=== PATIENT | female | born 1995 | race Caucasian/White ===

== ENCOUNTER → 2016-10-21 | Outpatient (CLI) | payer OTHER ==
--- NOTE | 2016-10-21 18:37 | DI ---
XR WRIST COMPLETE MIN 3VW,10/21/2016 12:40 PM: Clinical History: Right wrist pain. Previous Exam: None at this facility. Findings: 3 views of the right wrist are obtained, and demonstrate anatomic alignment without fractures. The garcia rrounding soft tissues are unremarkable. Impression: No fractures.
== END ==
LOC: MOB LAB 12:45
PROVIDERS: ATTEND Physician Assistant Medical
DX: S69.91XA Unspecified injury of right wrist, hand and finger(s), initial encounter (principal); S63.501A Unspecified sprain of right wrist, initial encounter; X50.0XXA Overexertion from strenuous movement or load, initial encounter
CPT/HCPCS: 73110

== ENCOUNTER 2018-04-27 14:59 | Observation (INO) ==
[2018-04-27] MEDS ORDERED: Sodium Chloride 0.9% 1,000 ML IV ONE (15:27)
[2018-04-27] MEDS ORDERED: Sodium Chloride 0.9% 1,000 ML PRIMARY IV ONE (15:37)
[2018-04-27 15:43] LABS: BASOPHILS # (AUTO) 0.01 10*3/UL; BASOPHILS % (AUTO) 0.1 % (0-1); EOSINOPHILS # (AUTO) 0.08 10*3/UL; EOSINOPHILS % (AUTO) 0.8 % (0-8); Hematocrit [HCT] 30.3 % (37.0-47.0); Hemoglobin [HGB] 9.1 g/dL (12.0-16.0); LYMPHOCYTES # (AUTO) 0.81 10*3/uL; MEAN CORPUSCULAR HEMOGLOBIN 21.7 PG (27-31); MEAN CORPUSCULAR VOLUME 72.1 FL (81-99); MEAN PLATELET VOLUME 11.5 FL (7.4-12.2); MONOCYTES # (AUTO) 0.33 10*3/UL (0.3-0.8); MONOCYTES % (AUTO) 3.2 % (5-15); NEUTROPHILS # (AUTO) 9.21 10*3/UL
[2018-04-27 15:51] LABS: PLATELET MORPHOLOGY COMMENT SEE COMMENTS (NORM); WBC MORPHOLOGY COMMENT NORMAL MORPHOLOGY (NORM)
[2018-04-27 15:52] LABS: RBC MORPHOLOGY COMMENT SEE COMMENTS (NORM)
[2018-04-27] MEDS ORDERED: ONDANSETRON 4 MG/2 ML VIAL IVP ONE (15:53)
[2018-04-27 15:54] LABS: BLOOD UREA NITROGEN 8 mg/dL (7-22); LIPASE 44 IU/L (23-300); SERUM ALBUMIN 3.5 g/dL (3.5-4.8)
[2018-04-27] MEDS: Sodium Chloride 0.9% 1,000 ML PRIMARY IV SCH (16:32)
[2018-04-27] MEDS ORDERED: FAMOTIDINE 20 MG/2 ML VIAL IVP ONE (16:41)
--- NOTE | 2018-04-27 16:54 | OB.PROGRES ---
Intake - - Reason for Visit/Chief Complaint: Nausea and Vomiting Admitted From: Home - Estimated Due Date: 07/23/18 Gestational Age in Weeks and Days: 27 Weeks and 4 Days : 4 Para: 3 Term Births: 3 Living Children: 3 - Labs Blood Type and Rh: B+ Group B Strep: Unknown Maternal - Vital Signs Last Taken Vital Signs: Vital Signs - Last Taken Temperature 98.4 F 04/27/18 15:40 Pulse Rate 88 04/27/18 15:40 Respiratory Rate 18 04/27/18 15:40 Blood Pressure 102/58 04/27/18 15:40 Pulse Ox 98 04/27/18 15:40 - Vaginal Discharge Vaginal Bleeding Amount: None Vaginal Discharge Amount: None Monitoring - Uterine Activity Uterine Contraction Monitor Mode: External Uterine Contraction Pattern: Irritability Uterine Tone Measurement Phase: Soft Results - Labs CBC and BMP: 04/27/18 15:40 04/27/18 15:40 Assessment and Plan - Assessment / Plan Additional Assessment/Plan Details: The patient is a 22-year-old at 27-1/2 weeks gestation who started having some nausea and not feeling well last night and then overnight had na usea, emesis, diarrhea. The patient states that she had about 30 loose stools, 15 emesis and was nauseated. Positive chills. No documented fever. Her Aunt also was sick. It was not known if the patient ate something since she and her Aunt had the same food or if they have a virus. The patient presented to labor and delivery mid afternoon secondary to the continued nausea and vomiting and diarrhea. The patient has received IV fluids and is feeling a little bit better as well as Zofran for nausea. The patient currently would like some promethazine for nausea since her nausea does persist. Past medical history-no hypertension, no diabetes, no asthma Past surgical history noncontributory No known drug allergies No tobacco, no alcohol, no drugs. Objective: Please see the vital signs. Nontoxic-appearing but the patient is tired appearing. Lungs clear to auscultation Heart regular rate and rhythm Abdomen with positive bowel sounds, gravid, nontender, no guarding or rebound Cervix was deferred Extremities without edema External monitoring showed good accelerations. No late decelerations. No regular uterine irritability noted. Labs were essentially normal except for mild to moderate anemia with an H&H of 9.1 and 30.3. Creatinine was normal. BUN was normal. Amylase and lipase were normal. Liver function tests were normal. Assessment: IUP 27-1/2 weeks with acute gastroenteritis. Viral versus foodborne. Mild to moderate anemia with a hemoglobin of 9.1 and hematocrit of 30.3 White count was normal with a white count of 10,460 and 90% neutrophils Plan: IV fluids with normal saline 2 L then D5 LR at 150 mL/h Patient received IV Zofran and this helped a little bit. Promethazine 25 mg tablet one half tablet to one tablet by mouth every 6 hours Stool will be sent for C. difficile although patient has not had antibiotics over the past couple months. Most likely this is viral or foodborne and not C. difficile but secondary to the patient having 30 loose stools today, C. difficile will be completed. The patient will be under observation tonight and receive IV fluids. And external monitoring
[2018-04-27 17:05] LABS: URINE SAMPLE TYPE CLEAN CATCH URINE
[2018-04-27 17:07] LABS: AMPHETAMINE SCREEN NEGATIVE (NEG); CANNABINOID SCREEN,URINE NEGATIVE (NEG); COCAINE SCREEN NEGATIVE (NEG); METHADONE URINE SCREEN NEGATIVE (NEG); METHAMPHETAMINES SCREEN,URINE NEGATIVE (NEG); OPIATE SCREEN,URINE NEGATIVE (NEG); TRICYCLIC ANTIDEPRESSANT,URINE NEGATIVE (NEG)
[2018-04-27] MEDS: D5-LR 1,000 ML PRIMARY IV SCH (17:17)
[2018-04-27] MEDS ORDERED: ONDANSETRON 4 MG/2 ML VIAL IVP PRN (17:42)
[2018-04-27] MEDS ORDERED: LIDOCAINE W/ SODIUM BICARB 0.5 ML SYR SUBD PRN (17:42)
[2018-04-27] MEDS ORDERED: Ondansetron ODT Tab 4 MG TAB PO PRN (17:42)
[2018-04-27] MEDS ORDERED: CALCIUM CARBONATE 500 MG (TUMS) CHEWABLE TABLET PO PRN (17:42)
[2018-04-27] MEDS: Promethazine Tab 25 MG TAB PO PRN ×2 (17:46→23:05)
[2018-04-27] MEDS ORDERED: ACETAMINOPHEN 325 MG TABLET PO ONE (22:11)
[2018-04-28] MEDS: D5-LR 1,000 ML PRIMARY IV SCH ×4 (00:02→22:37)
[2018-04-28 05:14] LABS: BASOPHILS # (AUTO) 0 10*3/UL; BASOPHILS % (AUTO) 0 % (0-1); EOSINOPHILS # (AUTO) 0.03 10*3/UL; EOSINOPHILS % (AUTO) 0.6 % (0-8); Hematocrit [HCT] 23.3 % (37.0-47.0); LYMPHOCYTES # (AUTO) 0.93 10*3/uL; MEAN CORPUSCULAR HEMOGLOBIN 21.9 PG (27-31); MEAN PLATELET VOLUME 12.1 FL (7.4-12.2); MONOCYTES % (AUTO) 4.1 % (5-15); RED BLOOD COUNT 3.19 10^6/uL (4.20-5.40)
[2018-04-28 05:39] LABS: PLATELET MORPHOLOGY COMMENT NORMAL MORPHOLOGY (NORM); RBC MORPHOLOGY COMMENT SEE COMMENTS (NORM); WBC MORPHOLOGY COMMENT NORMAL MORPHOLOGY (NORM)
[2018-04-28 05:40] LABS: BLOOD UREA NITROGEN 4 mg/dL (7-22); SERUM ALBUMIN 2.3 g/dL (3.5-4.8)
[2018-04-28] MEDS: Sodium Chloride 0.9% 1,000 ML PRIMARY IV SCH ×8 (07:39→10:31)
[2018-04-28] MEDS: ACETAMINOPHEN 500 MG TABLET PO PRN ×3 (08:15→21:22)
--- NOTE | 2018-04-28 08:15 | OB.PROGRES ---
Interval History: The patient states that she last had emesis last evening. One loose stool overnight. She has slight nausea this morning. The patient has a history of headaches or frequent headaches actually. Also she does get headaches when she takes Zofran historically. The patient states that she has been fatigued over the past several weeks also. Currently, the patient has a headache and a little bit of nausea and the nurse is going to give her Tylenol and promethazine. The patient stated that hopefully she will be able to eat something after that. The patient is hungry. Objective - Cervical Exam Cervical Exam: Deferred Heart Rate Interpretation Category: Category I - Labs CBC and BMP: 04/28/18 05:00 04/28/18 05:00 - Vital Signs Last Taken Vital Signs: Vital Signs - Last Taken Temperature 98.2 F 04/28/18 05:00 Pulse Rate 88 04/28/18 05:00 Respiratory Rate 17 04/28/18 05:00 Blood Pressure 94/51 04/28/18 05:00 Pulse Ox 99 04/28/18 05:00 - Additional Details Additional Details: Lungs clear to auscultation Heart regular rate and rhythm Abdomen with positive bowel sounds and gravid. Soft, nontender, no guarding or rebound Assessment and Plan - Assessment / Plan Additional Assessment/Plan Details: Assessment: IUP 27-5/7 weeks with acute gastroenteritis. Patient is feeling slightly better. Anemia-patient's H&H this morning was 7 and 23.3. Review of chart shows hemoglobin was 9.1 on 04/20/2018. Patient states that she has not been having any bleeding-vaginally or from GI tract. Patient states that she had si gnificant anemia with her first . Not significant anemia with her second and third . The patient does feel fatigued and does get headaches. Plan: Continue IV fluids Tylenol and promethazine currently If the patient would like to try a regular bland diet, the patient may do so I would like to start oral iron twice a day but if the patient is still having GI issues, right now is not the best time. I will speak with the hospitalist about IV iron. Additionally, iron studies could be completed. These will be ordered. Possible discharge home later today
[2018-04-28] MEDS ORDERED: Prenatal Multivitamin Tab 1 TAB TAB PO SCH (09:00)
[2018-04-28] MEDS ORDERED: SODIUM CHLORIDE 0.9% IV ONE ×2 (12:49→14:50)
[2018-04-28] MEDS ORDERED: IRON SUCROSE IV ONE ×2 (12:49→14:50)
[2018-04-28] MEDS ORDERED: diphenhydrAMINE 25 MG CAPSULE PO ONE (19:06)
--- NOTE | 2018-04-28 19:11 | OB.PROGRES ---
Interval History: The patient states that her GI symptoms are improved. However, the patient has developed bone pain in her shoulders and feet and back after the IV iron transfusion. No shortness of breath. But the pain is significant. Objective - Cervical Exam Cervical Exam: Deferred Heart Rate Interpretation Category: Category I - Labs CBC and BMP: 04/28/18 05:00 04/28/18 05:00 - Vital Signs Last Taken Vital Signs: Vital Signs - Last Taken Temperature 98.4 F 04/28/18 08:20 Pulse Rate 85 04/28/18 17:25 Respiratory Rate 18 04/28/18 17:25 Blood Pressure 85/50 04/28/18 17:25 Pulse Ox 97 04/28/18 17:25 - Additional Details Additional Details: Lungs clear to auscultation Heart regular rate and rhythm Abdomen is soft and nontender without guarding or rebound The patient is uncomfortable with her bone pain Assessment and Plan - Assessment / Plan Additional Assessment/Plan Details: IUP 27-5/7 weeks acute gastroenteritis with improved symptoms Significant anemia with an H&H of 7 and 23.3. I had spoken with the hospitalist here and he recommended IV iron transfusion and the patient received 100 mg dose times two per protocol. Patient did not receive both doses one after the other but there was significant time in between. Now the patient has bone pain. No shortness of breath. Plan: I spoke with the hospitalist about the patient's symptoms. He suggested a Medrol Dosepak and Benadryl. I have ordered both. He also suggested that the patient not receive another dose of IV iron as we had planned for a couple weeks from now secondary to the side effects of the bone pain. The Medrol and Benadryl will be given to the patient. If the patient continues to have pain, I may give her some hydrocodone with Tylenol. The patient will not be discharged tonight secondary to the symptoms that the patient is having.
[2018-04-28] MEDS ORDERED: METHYLPREDNISOLONE 4 MG TAB DOSE PACK PO SCH ×2 (19:15→19:30)
[2018-04-28] MEDS ORDERED: FAMOTIDINE 20 MG TABLET PO SCH (19:45)
[2018-04-28] MEDS: HYDROcodone-APAP 5 MG -325 MG TABLET PO PRN (21:23)
[2018-04-29] MEDS: D5-LR 1,000 ML PRIMARY IV SCH (07:45)
[2018-04-29] MEDS: HYDROcodone-APAP 5 MG -325 MG TABLET PO PRN (07:47)
--- NOTE | 2018-04-29 09:03 | OB.PROGRES ---
Interval History: The patient states that her nausea is greatly improved and she is eating breakfast this morning. Additionally, her bone pain is improved. She does have some lower back pain but surmise as it may be secondary to being in bed or the iron. The patient is feeling much better. The patient desires to go home. No loose stools for greater than 24 hours. No fever or chills. Objective - Cervical Exam Heart Rate Interpretation Category: Category I - Labs CBC and BMP: 04/28/18 05:00 04/28/18 05:00 - Vital Signs Last Taken Vital Signs: Vital Signs - Last Taken Temperature 97.6 F 04/29/18 05:25 Pulse Rate 88 04/29/18 05:25 Respiratory Rate 17 04/29/18 05:25 Blood Pressure 110/58 04/29/18 05:25 Pulse Ox 99 04/29/18 05:25 - Additional Details Additional Details: Lungs clear to auscultation Heart regular rate and rhythm Abdomen with positive bowel sounds, soft and nontender without guarding or rebound Assessment and Plan - Assessment / Plan Additional Assessment/Plan Details: Assessment: IUP 27-6/7 weeks status post acute gastroenteritis doing better. Moderate to severe anemia with H&H of 7 and 23.3 status post iron infusion and then bone pain which can be a significant side effect versus an allergic reaction. The patient is much improved now that she received the first dose of a Medrol Dosepak and Benadryl as well as 2 different doses of a single tablet of hydrocodone/Tylenol 5/325 Plan: The patient will be discharged after a nonstress test The patient has an appointment with her NUMERICAL CONTROL OPERATOR this afternoon at 1530 hrs. and the patient should keep this. I will speak to Dr. Santiago to inform him of the patient's hospital observation for 40 hours. The patient should continue taking the Medrol Dosepak with the dose today in the afternoon and then continue it at lunch every day. Zantac 150 mg 1 by mouth twice a day to help prevent GI irritation secondary to the Medrol Dosepak The patient should have a growth ultrasound secondary to the significant anemia that the patient has had. I will request that Dr. Santiago order this as an outpatient. If the patient receives another iron infusion, the patient should have a test do se to make sure that she is not allergic to the iron infusion. Most likely, this was a hypersensitivity reaction. The patient should start ferrous sulfate 325 mg 1 by mouth twice a day on 01 May to allow her GI system to recuperate after the acute gastroenteritis recalling that the patient just had an iron transfusion yesterday. Ferrous sulfate and Zantac was prescribed Colace 100 mg capsule 1 capsule by mouth daily to twice a day when necessary constipation The patient should delay her 1 hour Glucola that she was going to complete today for about 2 weeks since she is currently on a Medrol Dosepak and this will elevate her glucoses. The patient should have a hemoglobin and hematocrit checked in 2-4 weeks to determine how her H&H is. I will request that Dr. Santiago order this as an outpatient.
--- NOTE | 2018-04-29 09:17 | DCSUMMARY ---
Hospitalization Summary Admit Date: 04/27/18 Discharge Date: 04/29/18 Primary Diagnosis:: acute gastroenteritis Secondary Diagnosis:: Moderate to severe anemia Hospital Course: Assessment: IUP 27-6/7 weeks status post acute gastroenteritis doing better. Moderate to severe anemia with H&H of 7 and 23.3 status post iron infusion and then bone pain which can be a significant side effect versus an allergic reaction. The patient is much improved now that she received the first dose of a Medrol Dosepak and Benadryl as well as 2 different doses of a single tablet of hydrocodone/Tylenol 5/325 Plan: The patient will be discharged after a nonstress test The patient has an appointment with her FIXED INCOME ANALYST this afternoon at 1530 hrs. and the patient should keep this. I will speak to Dr. Santiago to inform him of the patient's [facility] for 40 hours. The patient should continue taking the Medrol Dosepak with the dose today in the afternoon and then continue it at lunch every day. Zantac 150 mg 1 by mouth twice a day to help prevent GI irritation secondary to the Medrol Dosepak The patient should have a growth ultrasound secondary to the significant anemia that the patient has had. I will request that Dr. Santiago order this as an outpatient. If the patient receives another iron infusion, the patient should have a test dose to make sure that she is not allergic to the iron infusion. Most likely, this was a hypersensitivity reaction. The patient should start ferrous sulfate 325 mg 1 by mouth twice a day on 01 May to allow her GI system to recuperate after the acute gastroenteritis recalling that the patient just had an iron transfusion yesterday. Ferrous sulfate was prescribed. The Zantac 150 mg 1 tablet by mouth twice a day will be called in by the nurse because the electronic medical record would not allow me to prescribe this for some reason. I will request that the nurse call this one in to her pharmacy. #60 and 4 refills Colace 100 mg capsule 1 capsule by mouth daily to twice a day when necessary constipation The patient should delay her 1 hour Glucola that she was going to complete today for about 2 weeks since she is currently on a Medrol Dosepak and this will elevate her glucoses. The patient should have a hemoglobin and hematocrit checked in 2-4 weeks to determine how her H&H is. I will request that Dr. Santiago order this as an outpatient. / Postop Complications: Delivery was not completed yet Johnson Complications: Delivery was not completed yet Exam - Vitals Vital Signs: Vital Signs Temperature 97.6 F Temperature Source Oral Pulse Rate [Pulse Oximeter] 100 Pulse Rate 88 Respiratory Rate 17 Blood Pressure [Right Arm] 110/58 Pulse Ox 99 Oxygen Delivery Method Room Air Height 5 ft 2 in Weight 155 lb
[2018-05-01 18:05] VITALS: BP 109/59; RESP 18; TEMP 98.1; O2SAT 97
== END 2018-04-29 09:56 | disposition home or self-care (01) ==
LOC: OBIP 14:59 → OBOP 14:59
PROVIDERS: ADMIT Obstetrics & Gynecology; ATTEND Obstetrics & Gynecology

== ENCOUNTER 2018-06-16 19:10 | Observation (INO) ==
[2018-06-16] MEDS ORDERED: Lactated Ringers 1,000 ML PRIMARY IV ONE (19:51)
[2018-06-16 20:19] LABS: Hematocrit [HCT] 29.9 % (37.0-47.0); Hemoglobin [HGB] 9.2 g/dL (12.0-16.0); MEAN CORPUSCULAR HEMOGLOBIN 23.3 PG (27-31); MEAN CORPUSCULAR HGB CONC 30.8 g/dL (33-37); MEAN CORPUSCULAR VOLUME 75.7 FL (81-99); MEAN PLATELET VOLUME 12.3 FL (7.4-12.2); RED BLOOD COUNT 3.95 10^6/uL (4.20-5.40)
[2018-06-16 20:29] LABS: BLOOD UREA NITROGEN 10 mg/dL (7-22); BUN/CREATININE RATIO 16.66 (6-20); SERUM ALBUMIN 3.2 g/dL (3.5-4.8)
[2018-06-16] MEDS: Lactated Ringers-OB Dept 1,000 ML PRIMARY IV SCH (20:56)
[2018-06-16 21:04] LABS: BILIRUBIN,URINE NEGATIVE (NEG); CLARITY,URINE Slightly Cloudy (CLEAR); COLOR,URINE YELLOW (Y); GLUCOSE, URINE (UA) NEGATIVE (NEG); OCCULT BLOOD,URINE NEGATIVE (NEG); PH,URINE 6.5 (5.0-8.5); PROTEIN,URINE NEGATIVE (NEG)
[2018-06-16 21:08] LABS: BACTERIA,URINE FEW; SQUAMOUS EPITHELIAL CELL,UR RARE; URINE CRYSTALS MANY; URINE SAMPLE TYPE VOIDED SPECIMEN
[2018-06-16] MEDS ORDERED: ONDANSETRON 4 MG/2 ML VIAL IVP PRN (21:48)
[2018-06-16] MEDS ORDERED: LIDOCAINE W/ SODIUM BICARB 0.5 ML SYR SUBD PRN (21:48)
[2018-06-16] MEDS ORDERED: Promethazine Tab 25 MG TAB PO PRN (21:50)
[2018-06-16] MEDS: metroNIDAZOLE Tab 500 MG TAB PO SCH (22:20)
[2018-06-16] MEDS ORDERED: MORPHINE SULFATE 2 MG/1 ML ONE (22:21)
[2018-06-16] MEDS: MORPHINE SULFATE 2 MG/1 ML IVP PRN (22:26)
[2018-06-17] MEDS: MORPHINE SULFATE 2 MG/1 ML IVP PRN (03:03)
[2018-06-17] MEDS: Lactated Ringers-OB Dept 1,000 ML PRIMARY IV SCH ×2 (03:04→09:39)
--- NOTE | 2018-06-17 08:36 | OB.PROGRES ---
Intake - - Reason for Visit/Chief Complaint: Contractions, Cramping Additional Reason(s) for Visit: Right leg is "burning", pt is crying Admitted From: Emergency Dept - Estimated Due Date: 07/23/18 Gestational Age in Weeks and Days: 34 Weeks and 6 Days : 4 Para: 3 Term Births: 3 Number of Abortions (Spont./Elective): 1 Living Children: 3 - Labs Blood Type and Rh: B+ Group B Strep: Unknown Maternal - Vital Signs Last Taken Vital Signs: Vital Signs - Last Taken Temperature 98 F 06/17/18 04:40 Pulse Rate 73 06/17/18 04:40 Respiratory Rate 16 06/17/18 04:40 Blood Pressure 95/57 06/17/18 04:40 Pulse Ox 98 06/17/18 04:40 - Vaginal Discharge Vaginal Bleeding Amount: None Vaginal Discharge Amount: None Monitoring - Uterine Activity Uterine Contraction Monitor Mode: External Contraction Frequency(minutes): 2-5 Contraction Duration (seconds): 60-80 Uterine Contraction Pattern: Irritability Uterine Tone Measurement Phase: Soft Uterine Contraction Intensity: Mild Results - Labs CBC and BMP: 06/16/18 19:40 06/16/18 19:40 Assessment and Plan - Assessment / Plan Additional Assessment/Plan Details: The patient is a 22-year-old at 34 6/7 weeks gestation who started having some tingling in her right leg over the past week or 2 but no significant pain. 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 The pain seemed to radiate from her right hip down her leg. The pain progressed and she went to labor and delivery secondary to some pain in her right leg and also in her lower abdomen. The patient was found to be having some uterine irritability but her cervix was closed. The patient had also had a vaginal discharge and vaginosis panel was positive for bacterial vaginosis. The patient was initially given IV fluids and her uterine irritability decreased. The patient's cervix was checked and her cervix was closed. The patient's pain in her right hip and leg continued. It was initially thought that perhaps the baby was pinching and nerve acutely. This morning, the patient relates that she has had the pain over the past couple weeks and it more acutely increased yesterday with the burning and feeling warm and tingling sensation. The patient did receive a couple doses of IV morphine and oral promethazine last evening and then once this morning around 3 AM. This did make the pain still a bit better. The patient would like to see physical therapy. No history of HSV. Past medical history-no hypertension, no diabetes, no asthma Past surgical history noncontributory No known drug allergies No tobacco, no alcohol, no drugs. 3 vaginal deliveries Objective: Please see the vital signs Lungs clear to auscultation Heart regular rate and rhythm Abdomen is gravid and soft and nontender Cervix exam deferred this morning. External monitor shows category 1 heart rate tracing No regular contractions. Positive straight leg raise on the right. Negative on the left. Reflexes were 1/4 bilaterally even with distraction test. Strength was 4+/5 on right leg and 5 out of 5 on left leg. Most likely, the slight decreased strength was secondary to the discomfort that the patient was having. Trace edema bilaterally lower extremity. Limited transabdominal ultrasound shows the baby to be in the transverse presentation with the head on the patient's right side. Subjectively, there is good amniotic fluid. Assessment: IUP 34-6/7 weeks with patient presenting last night with subacute and then acute right lower leg discomfort and pain and uterine irritability. The uterine irritability easily resolved with IV fluids. The patient does not drink much water. Patient also had bacterial vaginosis by vaginosis panel. The patient also has what appears to be sciatica and other right sided nerve discomfort and pain. The patient has minimally decreased strength compared to the left side that this is most likely secondary to the discomfort that the patient is having. The patient does not specifically have a Homans sign on the right leg but does have discomfort throughout her right leg. The patient also has moderate anemia with this history. Patient states that she is been taking her ferrous sulfate twice a day. Hematocrit was 29.9 and hemoglobin was 9.2. This is increased from April. Patient has a history of significant bone pain with iron infusion. Plan: I would like to get an ultrasound to rule out a DVT on the right leg. If this is negative, I will get physical therapy to see the patient. I will inform the patient's primary BUMPER OPERATOR about this patient so he can continue care. The patient was admitted for observation. I will discontinue the patient's IV morphine and placed the patient on some hydrocodone with Tylenol. Regular diet.
[2018-06-17] MEDS ORDERED: HYDROcodone-APAP 5 MG -325 MG TABLET PO PRN (08:40)
[2018-06-17 09:39] VITALS: BP 95/54; RESP 18; TEMP 97.7; O2SAT 97
[2018-06-17] MEDS: metroNIDAZOLE Tab 500 MG TAB PO SCH (10:19)
--- NOTE | 2018-06-17 10:20 | DI ---
VENOUS DOPPLER ULTRASOUND OF THE RIGHT LOWER EXTREMITY, 06/17/2018 8:38 AM: Clinical History: IUP 34 6/7 wk. Right leg pain. Previous Exam: None. Technique: 2D real-time imaging and color Doppler ultrasound with compression and augmentation maneuv ers. Deep Venous System: Normal deep venous system from groin to popliteal fossa. Superficial Venous System: Normal greater saphenous vein. Reading: Negative venous Doppler ultrasound of the right lower extremity.
--- NOTE | 2018-06-17 11:47 | OB.PROGRES ---
Date of Service: 06/17/18 Interval History: The patient is resting comfortably. DVT workup is negative. PT has seen her. No evidence of PTL or DVT. Discharge to home in good condition. Objective - Labs CBC and BMP: 06/16/18 19:40 06/16/18 19:40 - Vital Signs Last Taken Vital Signs: Vital Signs - Last Taken Temperature 97.7 F 06/17/18 08:09 Pulse Rate 71 06/17/18 08:34 Respiratory Rate 18 06/17/18 08:09 Blood Pressure 95/54 06/17/18 08:09 Pulse Ox 97 06/17/18 08:09 Assessment and Plan - Assessment / Plan Additional Assessment/Plan Details: Discharge to home. F/u as scheduled. - Time/Visit Time Spent With Patient: Less Than 15 Minutes
--- NOTE | 2018-06-17 15:56 | PTI REPORT ---
Thank you for the referral of Peter Jacobo. She was seen on 06/17/18 for an inpatient evaluation secondary to right hip and lower extremity pain. SUBJECTIVE: The patient is a 22-year-old female. The patient's physician spoke with the therapist prior to the evaluation, stating that the patient came in last night due to extreme hip and right leg pain. The patient states that her pain began insidiously and it was a sharp, burning pain that she has never experienced before; therefore, she came to the emergency room and was admitted because she is almost 35 weeks . She states this is her fourth and she is due next month. The patient states that her biggest complaint at this time is pain that is so bad she is having difficulty walking and getting in any position that helps with pain relief. Earlier an ultrasound was performed to rule out a blood clot. Testing came back negative. PAST MEDICAL HISTORY: Past medical history can be found in the patient's medical record. OBJECTIVE FINDINGS: Pain: The patient reports a pain level of 9/10 on the verbal analog scale (0=no pain, 10=worst pain) with any bed mobility or movement in the right SI joint area down the right lower extremity. Bed mobility/Ambulation: The patient was able to perform bed mobility and ambulation independently; however, with increased time and with an antalgic gait and with pain. Strength/Range of motion: Strength and range of motion were not formally tested due to the patient's pain level. The therapist attempted to palpate for proper AIIS and ASIS placement in the supine position in her bed; however, due to the patient's this was difficult. Measuring from the medial malleoli, the patient appears to have no difficulty with leg length discrepancy at this time. The patient was unable to tolerate either left or right coxofemoral joint mobilization. We attempted manual energy techniques for self correction of SI joint; however, the patient was unable to create enough force for any self mobilization techniques to be beneficial. ASSESSMENT: Problem List: Increased pain Physical Therapy Goals: To be met by discharge from inpatient: Patient will be educated on self positional techniques at home for pain relieving techniques. Patient will receive neuromuscular reeducation in the form of Kinesio taping to help alleviate pain. TREATMENT PLAN: Patient will be seen on a PRN basis while an inpatient for pain relieving techniques. INITIAL TREATMENT: Treatment today consisted of the initial evaluation followed by the patient receiving manual therapy in the form of bilateral lower extremity coxofemoral joint mobilization. We attempted SI joint manual energy techniques and self mobilization techniques as well as manual traction. The patient was not able to tolerate manual traction, indicating that aquatic therapy at this time would not be idea. She received neuromuscular reeducation in the form of Kinesio taping for space correction to the right SI joint as well as piriformis inhibition. JOSE L
== END 2018-06-17 13:33 | disposition home or self-care (01) ==
LOC: OBIP 19:10 → OBOP 19:10
PROVIDERS: ADMIT Obstetrics & Gynecology; ATTEND Obstetrics & Gynecology

== ENCOUNTER 2018-07-13 21:43 | Inpatient (IN) ==
[2018-07-13] MEDS ORDERED: Sodium Chloride 0.9% 1,000 ML PRIMARY IV ONE (23:06)
[2018-07-13] MEDS ORDERED: MORPHINE SULFATE 10 MG/1 ML IM ONE (23:09)
[2018-07-14] MEDS ORDERED: Sodium Chloride 0.9% 1,000 ML PRIMARY IV ONE (00:49)
[2018-07-14] MEDS: Sodium Chloride 0.9% 1,000 ML PRIMARY IV SCH ×2 (02:38→11:32)
[2018-07-14] MEDS ORDERED: ACETAMINOPHEN 325 MG TABLET PO ONE ×3 (04:28→17:51)
[2018-07-14] MEDS ORDERED: ONDANSETRON 4 MG/2 ML VIAL IVP ONE (04:28)
[2018-07-14 07:41] LABS: Hematocrit [HCT] 26.1 % (37.0-47.0); MEAN CORPUSCULAR HEMOGLOBIN 23.7 PG (27-31); MEAN CORPUSCULAR HGB CONC 30.7 g/dL (33-37); MEAN CORPUSCULAR VOLUME 77.2 FL (81-99); MEAN PLATELET VOLUME 12.1 FL (7.4-12.2); RED BLOOD COUNT 3.38 10^6/uL (4.20-5.40)
[2018-07-14 07:50] LABS: BLOOD UREA NITROGEN 9 mg/dL (7-22); SERUM ALBUMIN 2.6 g/dL (3.5-4.8); Uric Acid 3.8 mg/dl (2.5-6.2)
[2018-07-14] MEDS ORDERED: diphenhydrAMINE 25 MG CAPSULE PO ONE (08:57)
[2018-07-14] MEDS ORDERED: Sodium Chloride 0.9% 500 ML PRIMARY IV ONE (08:57)
--- NOTE | 2018-07-14 09:03 | OB.PROGRES ---
Intake - - Reason for Visit/Chief Complaint: Contractions, Other Additional Reason(s) for Visit: severe leg and hip pain Admitted From: Home - LMP: unk Estimated Due Date: 07/23/18 Gestational Age in Weeks and Days: 38 Weeks and 5 Days : 5 Para: 3 Term Births: 3 Number of Abortions (Spont./Elective): 1 Living Children: 3 - Labs Blood Type and Rh: B+ Group B Strep: Negative Hepatitis B Surface Antigen: Absent HIV: Negative Rubella Status: Immune VDRL/RPR: Absent Maternal - Vital Signs Last Taken Vital Signs: Vital Signs - Last Taken Temperature 97.8 F 07/14/18 04:52 Pulse Rate 97 07/14/18 04:52 Respiratory Rate 18 07/14/18 04:52 Blood Pressure 108/53 07/14/18 04:52 Pulse Ox 98 07/14/18 04:52 - Cervical Exam Cervical Dilation (cm): 2 Cervical Effacement Percentage: 50 Station: -3 Exam Performed By: MEG day - Vaginal Discharge Vaginal Bleeding Amount: Spotting Vaginal Bleeding Description: Brownish-Red Vaginal Bleeding Onset: 07/13/18 am Vaginal Discharge Amount: None Vaginal Discharge Description: Watery Vaginal Discharge Odor: Odorless Vaginal Itching: No Monitoring - Uterine Activity Uterine Contraction Monitor Mode: External Contraction Frequency(minutes): x2 Contraction Duration (seconds): 50-70 Uterine Contraction Pattern: Irritability Uterine Tone Measurement Phase: Soft Uterine Contraction Intensity: Mild Results - Labs CBC and BMP: 07/14/18 07:38 07/14/18 07:38 - Bedside Testing Bedside Urine Ketone: Small Bedside Urine Leukocytes Esterase: Negative Bedside Urine Nitrite: Negative Bedside Urine Occult Blood: Negative Bedside Urine Protein: Negative Bedside Specific [place]: 1.015 Assessment and Plan - Assessment / Plan Additional Assessment/Plan Details: The patient is not in labor at this time. We are planning induction at 39 weeks. She is significantly anemic, as she has been throughout her despite an iron infusion and PO iron throughout. Will administer 2 U PRBC in anticipation of normal blood loss at delivery. This was discussed with the patient and she agrees. She will be discharged after the transfusion to return at [facility] on 07/17/18 for induction. - Time/Visit Time Spent With Patient: 15-25 Minutes
[2018-07-14] MEDS ORDERED: methylPREDNISolone 125 MG/2 ML VIAL IVP ONE (17:51)
[2018-07-14] MEDS ORDERED: FUROSEMIDE 10 MG/1 ML - 2 ML VIAL IVP ONE (17:51)
[2018-07-14] MEDS ORDERED: diphenhydrAMINE 50 MG/1 ML VIAL IVP ONE (17:51)
--- NOTE | 2018-07-14 17:59 | PDOC ---
HPI - History of Present Illness Date of Service: 07/14/18 Time of Service: 17:53 Chief Complaint: wheezing and hypotension with blood transfusion History of Present Illness: This is a very pleasant 22 YO female win the later stages of her who has had issues with iron deficiency anemia. She states that she did not feel very good with a blood transfusion today, felt heavy arm sensation, chest discomfort, some shortness of breath, and wheezing. She had a headache that started last night over the top of her head and has persisted today without much improvement. She had nausea. The patient denies asthma. She does not smoke. She states that she had a reaction to IV iron infusion as well in which her entire body and all her joints hurt. She denies any fever, but felt she had some congestion. She did not have influenza vaccine. The patient states she has been on PO iron and tolerates that, and her most recent iron level was low despite minimal change in hemoglobin. The patient denies any history of sickle cell disease or trait in her history. She has not had any history of thallasemias. The patient denies any medial issues outside of her . She is feeling her baby move and there is a NST strip running right now that shows a good heart beat for baby. I have asked the lab for a transfusion reaction workup. She has not been hypoxic despite wheezing and cough. She has never had problems with hypertension in or preeclampsia. Past Medical History Medical History: 1. anemia in . 2. IV iron transfusion reaction. Surgical History: no prior surgeries Pertinent Family History: history of diabetes in the family. Past Social History: does not smoke or drink alcohol. has three other children. In the Past 12 Months, Have Used or Abuse Any of the Following Substance: None Alcohol Use: None Medication / Allergies Home Medications: Home Medications Medication Instructions Recorded Confirmed Type 1 tab PO QDAY 12/09/17 07/13/18 History vitamin,calcium,qbsozqse-[id number]-nnjoj acid tablet Ferrous Sulfate [Feosol] 325 mg PO BID #60 tab 04/29/18 07/13/18 Rx docusate sodium 100 mg capsule 100 mg PO BID 05/26/18 07/13/18 History ranitidine 150 mg tablet 150 mg PO BID tab 05/26/18 07/13/18 History metroNIDAZOLE Tab [Flagyl Tab] 500 mg PO BID #14 tab 06/17/18 07/07/18 Rx dicloxacillin 250 mg capsule 250 mg PO QID #28 cap 06/19/18 07/07/18 Rx nitrofurantoin 100 mg PO BID #14 cap 06/19/18 07/07/18 Rx monohydrate/macrocrystals 100 mg capsule Allergies/Adverse Reactions: Allergies Allergy/AdvReac Type Severity Reaction Status Date / Time No Known Allergies Allergy Verified 07/13/18 22:02 Review of Systems - Constitutional Constitutional: REPORTS: General Health Good - Ear/Nose Exam Ear/Nose Exam: REPORTS: Congestion - Respiratory Respiratory: REPORTS: Cough, Wheezing - Cardiovascular Cardiovascular: REPORTS: Other (chest discomfort attributed to wheezing and heartburn.) - Gastrointestinal Gastrointestinal / Abdominal: REPORTS: Nausea, Vomiting - Genitourinary Genitourinary: REPORTS: Negative System Review - Neurological Neurologic: REPORTS: Headache Exam - Vitals Vital Signs: Vital Signs Temperature 98.1 F Temperature Source Oral Pulse Rate [Pulse Oximeter] 80 Pulse Rate 77 Respiratory Rate 16 Blood Pressure [Right Arm] 108/53 Blood Pressure 101/60 Pulse Ox 95 Oxygen Delivery Method Room Air Height 5 ft 3 in Weight 163 lb Selected Entries 07/14/18 14:30 07/14/18 14:45 07/14/18 15:00 Blood Pressure 88/54 90/58 86/53 07/14/18 15:15 Blood Pressure 88/54 - General General Appearance: No Acute Distress, Cooperative - Head Head Exam: Normal Inspection, Normocephalic, Atraumatic - Eye Eye Exam: POSITIVE: No Scleral Icterus - ENT ENT Exam: POSITIVE: Mucous Membranes Moist - Neck Neck Exam: JVP is not Raised - Respiratory Respiratory Exam: POSITIVE: Breathing Non Labored, Wheezes, Coarse Breath Sounds - Cardiovascular Cardiovascular Exam: POSITIVE: RRR, No Murmur, No Clicks, No Gallops, No Rubs, No JVD - GI/Abdominal GI/Abdominal Exam: POSITIVE: Normal Bowel Sounds, Non Tender, Non Distended, Soft Additional GI/Abdominal Exam Details: gravid abdomen - Rectal Rectal Exam: POSITIVE: Deferred - External Exam: POSITIVE: Deferred Exam: POSITIVE: Deferred - Extremities Extremities Exam: POSITIVE: No Clubbing Present, No Edema Present, No Cyanosis Present - Neurological Neurological Exam: POSITIVE: Alert, Oriented x 3, No Facial Droop, Speech Intact / Clear, Moves All Extremities Equally - Psychiatric Psychiatric Exam: POSITIVE: Normal Affect, Normal Mood - Integumentary Integumentary Exam: POSITIVE: Normal Color Additional Integumentary Exam Details: no rash Results - Labs CBC and BMP: 07/14/18 07:38 07/14/18 07:38 Additional Lab Results: Laboratory Results 07/14/18 07/14/18 07/14/18 07:35 07:38 07:38 WBC 8.04 RBC 3.38 L Hgb 8.0 L Hct 26.1 L MCV 77.2 L MCH 23.7 L MCHC 30.7 L RDW Std Deviation 51.4 H RDW Coeff of [place] 19.0 H Plt Count 126 L MPV 12.1 Sodium 138 Potassium 4.1 Chloride 112 Carbon Dioxide 19 L Anion Gap 7 BUN 9 Creatinine 0.5 Estimated GFR > 60 BUN/Creatinine Ratio 18.00 Glucose 71 L Calculated Osmolality 282.0 Uric Acid 3.8 Calcium 7.5 L Total Bilirubin 0.3 AST 11 ALT 9 Alkaline Phosphatase 100 Lactate Dehydrogenase 247 L Total Protein 5.2 L Albumin 2.6 L Globulin 2.6 Albumin/Globulin Ratio 1.00 L Blood Type B POSITIVE Antibody Screen Negative Crossmatch See Detail - Imaging Status: Image Pending (I have ordered a chest X-ray to look for fluid overload) Assessment and Plan - Patient Problems (1) TACO (transfusion associated circulatory overload) Current Visit: Yes Status: Acute Code(s): E87.71 - Transfusion associated circulatory overload (2) Blood transfusion reaction Current Visit: Yes Status: Acute Code(s): T80.92XA - Unspecified transfusion reaction, initial encounter Qualifiers: Encounter type: initial encounter Qualified Code(s): T80.92XA - Unspecified transfusion reaction, initial encounter (3) Headache Current Visit: Yes Status: Acute Code(s): R51 - Headache Qualifiers: Headache type: tension-type Headache chronicity pattern: acute headache Intractability: intractable Qualified Code(s): G44.201 - Tension-type he adache, unspecified, intractable (4) Normal intrauterine in third trimester Current Visit: Yes Status: Acute Code(s): Z34.93 - Encounter for supervision of normal , unspecified, third trimester (5) Anemia, iron deficiency Current Visit: Yes Status: Acute Code(s): D50.9 - Iron deficiency anemia, unspecified Qualifiers: Iron deficiency anemia type: other iron deficiency Qualified Code(s): D50.8 - Other iron deficiency anemias - Assessment / Plan Additional Assessment/Plan Details: overall, I think the presentation is most consisted with transfusion associated circulatory overload, or TACO. Not all the signs and symptoms are completely convincing, but given wheezing and suspected fluid overload, I think it prudent to presume TACO until proven otherwise lasix tylenol/benadryl/solumedrol check CXR for overload in case this is a viral syndrome in setting of blood transfusion, check for influenza hold off on any further units of PRBC no IV iron given reaction on prior infusion work up first unit of blood for transfusion reaction, though TACO does not necessarily correlate with positive workups. check magnesium and replace if low with wheezing PRN albuterol I think the patient should remain overnight to reassess interventions. Thank you for this consult, will be glad to assist in care during the hospital stay.
--- NOTE | 2018-07-14 18:01 | DI ---
LIMITED OBSTETRICAL ULTRASOUND, 07/14/2018 9:04 AM Clinical History: Third trimester . Assess well-being. Previous Exam: 02/24/2018. Adjusted EDC by early OB US: 07/23/2018. Comment: The ordering initially was for only CODY. However, upon scanning this fetus, a membrane was i dentified and therefore biometry was performed. Cervical Length: Estimated at 35 mm. Lie: Single live IUP in vertex presentation. Amnionic Fluid Content: Amnionic fluid content is increased for this stage of . Amnionic Fluid Index: 11.0 cm. Activity: cardiac and extremity. Placental Location and Grade: Anterior corpus. Grade 3. Heart Rate: 130 beats/minute and regular. Additional Findings: Multiple scans through the right lower quadrant of the mother show a hyperechoic sheetlike structure located between the placenta and the fetus. There is an amnionic fluid on both s ides of this structure. Biometry: BPD: 91 mm, 37 weeks 0 days. HC: 336 mm, 38 weeks 4 days. AC: 331 mm, 37 weeks 1 day. FL: 72 mm, 37 weeks 0 days. Composite EGA: 37 weeks 3 days. US EDC: 08/01/2018. EDC By Early OB US: 07/23/2018. LMP Percentile: 28%. Weight: 3124 g, plus or minus 456 g. Ovaries and Adnexae: Not visualized Readin. Single live fetus with vertex presentation. Amniotic fluid content appears slightly increased for this stage of . CODY is 11.0 cm. Placenta is anterior corpus and grade 3. 2. There is a hyperechoic "sheetlike" structure lying between the anterior placenta and the fetus on the right side of the uterus. This is quite extensive and does not appear to represent a classic amn iotic band. 3. The composite EGA is 37 weeks 3 days with an ultrasound EDC of 08/01/2018. Based on the early OB u ltrasound, the EDC would be 07/23/2018. LMP percentile is 28%. Estimated weight is 3124 g, plus or minus 456 g.
[2018-07-14] MEDS: ALBUTEROL SULFATE 2.5 MG/3 ML NEB PRN (18:45)
--- NOTE | 2018-07-14 19:13 | DI ---
AP CHEST X-RAY, 07/14/2018 5:50 PM : Clinical History: Wheezing posttransfusion. Previous Exam: 05/27/2018. Soft Tissues: No acute soft tissue abnormality. The patient is and was provided additional s hielding. Bones: Normal. Heart: Normal heart. Lungs: No infiltrates. There is no evidence of interstitial pulmonary edema to suggest fluid overload . Effusion(s): None. Mediastinum: Normal mediastinum. Nodules: No pulmonary nodules. Reading: Normal chest x-ray.
[2018-07-14] MEDS ORDERED: Magnesium Sulfate 2gm (Premix) 2 GM/50 ML BAG IV ONE (19:49)
[2018-07-15 05:06] LABS: BASOPHILS # (AUTO) 0 10*3/UL; BASOPHILS % (AUTO) 0 % (0-1); EOSINOPHILS # (AUTO) 0.01 10*3/UL; EOSINOPHILS % (AUTO) 0.2 % (0-8); Hematocrit [HCT] 30.3 % (37.0-47.0); Hemoglobin [HGB] 9.6 g/dL (12.0-16.0); LYMPHOCYTES # (AUTO) 0.45 10*3/uL; MEAN CORPUSCULAR HEMOGLOBIN 24.5 PG (27-31); MEAN CORPUSCULAR HGB CONC 31.7 g/dL (33-37); MEAN CORPUSCULAR VOLUME 77.3 FL (81-99); MEAN PLATELET VOLUME 13.2 FL (7.4-12.2); MONOCYTES # (AUTO) 0.11 10*3/UL (0.3-0.8); MONOCYTES % (AUTO) 1.8 % (5-15); NEUTROPHILS # (AUTO) 5.46 10*3/UL; NEUTROPHILS % (AUTO) 90.1 % (50-80); RED BLOOD COUNT 3.92 10^6/uL (4.20-5.40)
[2018-07-15 05:12] LABS: BLOOD UREA NITROGEN 9 mg/dL (7-22); SERUM ALBUMIN 2.9 g/dL (3.5-4.8)
[2018-07-15 05:29] LABS: PLATELET MORPHOLOGY COMMENT NORMAL MORPHOLOGY (NORM); RBC MORPHOLOGY COMMENT NORMAL MORPHOLOGY (NORM); WBC MORPHOLOGY COMMENT NORMAL MORPHOLOGY (NORM)
[2018-07-15] MEDS: diphenhydrAMINE 50 MG/1 ML VIAL IVP PRN ×2 (10:40→16:31)
[2018-07-15] MEDS: ALBUTEROL SULFATE 2.5 MG/3 ML NEB PRN ×3 (10:48→19:33)
--- NOTE | 2018-07-15 11:05 | OB.PROGRES ---
Interval History: Consultation from Dr. Peña noted and appreciated. Will hold off on the second unit of PRBC. Hbg this AM was 9. The patient will be 39 weeks tomorrow. As such, and given the weather situation, we will keep her here and begin her induction after midnight tonight with anticipated vaginal delivery tomorrow. FHRT remains reassuring and her CODY was normal at 11. Will await any additional recommendations from Dr. Peña. Objective - Labs CBC and BMP: 07/15/18 04:03 07/15/18 04:03 - Vital Signs Last Taken Vital Signs: Vital Signs - Last Taken Temperature 98.4 F 07/15/18 04:30 Pulse Rate 96 07/15/18 10:49 Respiratory Rate 22 07/15/18 10:49 Blood Pressure 98/52 07/14/18 19:00 Pulse Ox 100 07/15/18 10:49 Assessment and Plan - Assessment / Plan Additional Assessment/Plan Details: 38 6/7 week IUP with anemia and general malaise. Plan continued observation with induction of labor beginning early tomorrow morning.
--- NOTE | 2018-07-15 12:13 | OB.PROGRES ---
Interval History: Influenza PCR swab returned positive for Influenza A after nasal swab was negative yesterday. This finding was discussed with Dr. Washington from pediatric perspective. We both feel it would be extremely beneficial to the to have several days of Tamiflu on board before undertaking the planned elective induction. Therefore, the patient will be transferred out of L&D to the floor for continued observation while receiving Tamiflu. The induction for tomorrow will be cancelled. Objective - Labs CBC and BMP: 07/15/18 04:03 07/15/18 04:03 - Vital Signs Last Taken Vital Signs: Vital Signs - Last Taken Temperature 98.4 F 07/15/18 04:30 Pulse Rate 96 07/15/18 10:49 Respiratory Rate 22 07/15/18 10:49 Blood Pressure 98/52 07/14/18 19:00 Pulse Ox 100 07/15/18 10:49
[2018-07-15] MEDS: OSELTAMIVIR PHOSPHATE 75 MG CAPSULE PO SCH ×2 (14:06→20:06)
--- NOTE | 2018-07-15 14:33 | PDOC(PROG) ---
Date of Service: 07/15/18 Time of Service: 14:28 Interval History: Patient seen and evaluated earlier. Discussed with Dr. Santiago. The patient states that her cough is persistent. She states that she did not like the effects of steroid and it made her feel "jittery". She does continue to have persistent headaches. She notes that her breathing seems to be a little bit easier today. Objective : Data - Labs CBC and BMP: 07/15/18 04:03 07/15/18 04:03 Additional Lab Results: 07/15/18 10:53 Respiratory Panel (PCR) - Final Nasal Swab Significant for influenza a H3 Objective : Exam - General General Appearance: No Acute Distress, Cooperative Additional General Exam Details: Vital Signs - Last Taken Temperature 98.4 F 07/15/18 04:30 Pulse Rate 96 07/15/18 10:49 Respiratory Rate 22 07/15/18 10:49 Blood Pressure 98/52 07/14/18 19:00 Pulse Ox 100 07/15/18 10:49 - Eye Eye Exam: No Scleral Icterus - ENT ENT Exam: Mucous Membranes Moist - Neck Neck Exam: JVP is not Raised - Respiratory Respiratory Exam: Breathing Non Labored, Wheezes, Coarse Breath Sounds - Cardiovascular Cardiovascular Exam: RRR, No Murmur, No Clicks, No Gallops, No Rubs, No JVD - Extremities Extremities Exam: No Clubbing Present, No Edema Present, No Cyanosis Present - Neurological Neurological Exam: Alert, Oriented x 3, No Facial Droop, Speech Intact / Clear, Moves All Extremities Equally Assessment and Plan - Patient Problems (1) Influenzal bronchitis Current Visit: Yes Status: Acute Code(s): J11.1 - Influenza due to unidentified influenza virus with other respiratory manifestations (2) Blood transfusion reaction Current Visit: Yes Status: Acute Code(s): T80.92XA - Unspecified transfusion reaction, initial encounter Qualifiers: Encounter type: initial encounter Qualified Code(s): T80.92XA - Unspecified transfusion reaction, initial encounter (3) Headache Current Visit: Yes Status: Acute Code(s): R51 - Headache Qualifiers: Headache type: tension-type Headache chronicity pattern: acute headache Intractability: intractable Qualified Code(s): G44.201 - Tension-type headache, unspecified, intractable (4) Normal intrauterine in third trimester Current Visit: Yes Status: Acute Code(s): Z34.93 - Encounter for supervision of normal , unspecified, third trimester (5) Anemia, iron deficiency Current Visit: Yes Status: Acute Code(s): D50.9 - Iron deficiency anemia, unspecified Qualifiers: Iron deficiency anemia type: other iron deficiency Qualified Code(s): D50.8 - Other iron deficiency anemias (6) TACO (transfusion associated circulatory overload) Current Visit: Yes Status: Ruled-out Code(s): E87.71 - Transfusion associ ated circulatory overload - Assessment / Plan Additional Assessment/Plan Details: There is no infiltrate on chest x-ray, no evidence of fluid overload. As I mentioned down addendum yesterday, I think less about transfusion associated circulatory overload, and given the biofire PCR testing with influenza A, H3 noted, I think the likely scenario is that the patient has an influenza bronchitis, and she had an adverse reaction to a blood transfusion not an allergic reaction. I did speak with the lab and there was no evidence of any transfusion reaction. I think it would be safe to proceed with blood transfusion as per obstetrics, but I would recommend pre-medicating with Benadryl and Tylenol at a minimum. One could consider prednisone as well, but the patient was "jittery" with Solu- Medrol. Supportive care with oxygen if indicated, albuterol for bronchitis and chest discomforts, and I would agree that trying to get the patient through her tr eatment of influenza make some sense prior to induction. Tamiflu 75 mg twice a day for 5 days would be recommended
[2018-07-15] MEDS: Sodium Chloride 0.9% 1,000 ML PRIMARY IV SCH ×3 (16:47→19:58)
[2018-07-15] MEDS: ACETAMINOPHEN 325 MG TABLET PO PRN ×2 (17:05→23:22)
[2018-07-15] MEDS ORDERED: Zolpidem Tab 5 MG TAB PO PRN (19:28)
[2018-07-15] MEDS ORDERED: Benzocaine/Menthol 6mg/10mg 1 EACH LOZENGE PO PRN (19:31)
[2018-07-16] MEDS: ALBUTEROL SULFATE 2.5 MG/3 ML NEB PRN ×2 (00:31→05:06)
[2018-07-16] MEDS: diphenhydrAMINE 50 MG/1 ML VIAL IVP PRN (01:33)
[2018-07-16] MEDS: Sodium Chloride 0.9% 1,000 ML PRIMARY IV SCH (02:30)
[2018-07-16] MEDS: ACETAMINOPHEN 325 MG TABLET PO PRN (05:17)
[2018-07-16] MEDS: OSELTAMIVIR PHOSPHATE 75 MG CAPSULE PO SCH (08:33)
[2018-07-16 12:59] VITALS: BP 95/59; RESP 18; TEMP 98.5; O2SAT 97
--- NOTE | 2018-07-16 14:07 | DCSUMMARY ---
Hospitalization Summary Admit Date: 07/13/18 Discharge Date: 07/16/18 Primary Diagnosis:: Influenza A in third trimester Secondary Diagnosis:: Anemia Hospital Course: The patient presented with pelvic and leg pain as before. She was monitored and noted to not be in labor, with reactive NST. CODY was 11 cm. Labs were done which revealed significant anemia. As delivery was planned for 07/16, she was transfused. 2 U PRBC were ordered, but the patient appeared to have a transfusion reaction with the first unit, so the second unit was cancelled. In the meantime, a PCR for influenza returned positive for Influenza A. The patient was started on Tamiflu and transferred to the floor for continued observation. The induction planned for 07/16 was cancelled out of concern for exposure to Influenza. The patient felt much better on 07/16 and was discharged to home on Tamiflu. Induction is now scheduled for 07/18. The patient will return at 0800 on 07/18. Exam - Vitals Vital Signs: Vital Signs Temperature 98.5 F Temperature Source Temporal Artery Scan Pulse Rate [Pulse Oximeter] 84 Pulse Rate 99 Respiratory Rate 18 Blood Pressure [Left Arm] 108/52 Blood Pressure [Right Arm] 95/59 Blood Pressure 101/60 Pulse Ox 97 Oxygen Flow Rate 96 Oxygen Delivery Method Room Air Height 5 ft 3 in Weight 168 lb
--- NOTE | 2018-07-16 14:09 | OB.PROGRES ---
Interval History: Feeling much better this morning. She has been afebrile. NSTs have been reactive. Objective - Labs CBC and BMP: 07/15/18 04:03 07/15/18 04:03 - Vital Signs Last Taken Vital Signs: Vital Signs - Last Taken Temperature 98.5 F 07/16/18 12:58 Pulse Rate 84 07/16/18 12:58 Respiratory Rate 18 07/16/18 12:58 Blood Pressure 95/59 07/16/18 12:58 Pulse Ox 97 07/16/18 12:58 Assessment and Plan - Assessment / Plan Additional Assessment/Plan Details: The patient will be discharged to home on Tamiflu to f/u in two days for induction of labor.
--- NOTE | 2018-07-16 14:59 | DCSUMMARY ---
Hospitalization Summary Admit Date: 07/14/2018 Discharge Date: 07/16/18 Primary Diagnosis:: intrauterine with influenza bronchitis Hospital Course: This is a very pleasant 22-year-old female that we are consulted on after some adverse reactions after her blood transfusion. The initial impression was that the patient might have taco, transfusion associated circulatory overload, but chest x-ray workup was negative, and the patient ended up having influenza A, H3 respiratory evaluations. Patient was started on Tamiflu, was kept on albuterol, and had intermittently low fevers of 100.4F, but her cough is improved, and she was ambulatory on the date of her discharge and I walk her walk out of the hospital and she was feeling much better. The hospital service will sign off. OB has a plan to proceed with labor induction and a couple of days. Overall, the patient to remain on Tamiflu for total of 5 days. The patient's significant other will check in with their primary regarding influenza evaluation to see if they have the virus as well. Patient was ambulatory, had normal neurologic function, speech was intact and clear. Assessment and Plan: 1. As per discharge assessments noted 2. Disposition: Patient is discharged home 3. Condition on discharge, stable and improved. 4. Diet: regular diet 5. Activities: resume normal activities 6. Follow-Up: 1. See Dr. Santiago in 2 days for labor induction 7. Medications at the Time of Discharge: Home Medications Medication Instructions Recorded Confirmed Type 1 tab PO QDAY 12/09/17 07/13/18 History vitamin,calcium,[id number] acid tablet Ferrous Sulfate [Feosol] 325 mg PO BID #60 tab 04/29/18 07/13/18 Rx ranitidine 150 mg tablet 150 mg PO BID tab 05/26/18 07/13/18 History Oseltamivir Phosphate [Tamiflu] 75 mg PO BID #6 cap 07/16/18 Rx Observation discharge Exam - Vitals Vital Signs: Vital Signs Temperature 98.5 F Temperature Source Temporal Artery Scan Pulse Rate [Pulse Oximeter] 84 Pulse Rate 99 Respiratory Rate 18 Blood Pressure [Left Arm] 108/52 Blood Pressure [Right Arm] 95/59 Blood Pressure 101/60 Pulse Ox 97 Oxygen Flow Rate 96 Oxygen Delivery Method Room Air Height 5 ft 3 in Weight 168 lb - General General Appearance: No Acute Distress, Cooperative - Neurological Neurological Exam: POSITIVE: Alert, Oriented x 3, Normal Gait, No Facial Droop, Speech Intact / Clear, Moves All Extremities Equally Data Peritnent Studies: 07/15/18 07/15/18 04:03 04:03 WBC 6.06 Hgb 9.6 L Hct 30.3 L Plt Count 152 Sodium 138 Potassium 4.0 Chloride 108 Carbon Dioxide 19 L Anion Gap 11 BUN 9 Creatinine 0.6 BUN/Creatinine Ratio 15.00 Glucose 124 H Calculated Osmolality 285.0 Calcium 8.8 Magnesium 1.7 Total Bilirubin 0.4 AST 18 ALT 6 L Alkaline Phosphatase 126 Total Protein 5.5 L Albumin 2.9 L Globulin 2.6 Albumin/Globulin Ratio 1.10 L Procedures: [address] [facility] [place] [address] PH: DD: [phone] FAX: [phone] ~DIAGNOSTIC IMAGING REPORT~ Patient: Peter Jacobo : 1995 Sex: F Age: 22 Exam Name: XR CXR 1VW Exam Date: 07/14/18 Report # : [id number] CPT Code: 85045 EMR/MR #: [id number] Ordering: ART NAJERA Admiting: Aldo Santiago MD. Primary: Aldo Santiago MD. Attending: Aldo Santiago MD. Signed AP CHEST X-RAY, 07/14/2018 5:50 PM : Clinical History: Wheezing posttransfusion. Previous Exam: 05/27/2018. Soft Tissues: No acute soft tissue abnormality. The patient is and was provided additional shielding. Bones: Normal. Heart: Normal heart. Lungs: No infiltrates. There is no evidence of interstitial pulmonary edema to suggest fluid overload. Effusion(s): None. Mediastinum: Normal mediastinum. Nodules: No pulmonary nodules. Reading: Normal chest x-ray. Dictated By: 07/14/181907 AMANDA DAS MD. Signed By: 07/14/181912 AMANDA DAS MD. [address] [facility] [place] [address] PH: DD: [phone] FAX: [phone] ~DIAGNOSTIC IMAGING REPORT~ Patient: Peter Jacobo : 1995 Sex: F Age: 22 Exam Name: US OB , Limited Exam Date: 07/14/18 Report # : [id number] CPT Code: 49562 EMR/MR #: [id number] Ordering: Aldo Santiago Admiting: Aldo Santiago MD. Primary: Aldo Santiago MD. Attending: Aldo Santiago MD. Signed LIMITED OBSTETRICAL ULTRASOUND, 07/14/2018 9:04 AM Clinical History: Third trimester . Assess well-being. Previous Exam: 02/24/2018. Adjusted EDC by early OB US: 07/23/2018. Comment: The ordering initially was for only CODY. However, upon scanning this fe tus, a membrane was identified and therefore biometry was performed. Cervical Length: Estimated at 35 mm. Lie: Single live IUP in vertex presentation. Amnionic Fluid Content: Amnionic fluid content is increased for this stage of . Amnionic Fluid Index: 11.0 cm. Activity: cardiac and extremity. Placental Location and Grade: Anterior corpus. Grade 3. Heart Rate: 130 beats/minute and regular. Additional Findings: Multiple scans through the right lower quadrant of the mother show a hyperechoic sheetlike structure located between the placenta and the fetus. There is an amnionic fluid on both sides of this structure. Biometry: BPD: 91 mm, 37 weeks 0 days. HC: 336 mm, 38 weeks 4 days. AC: 331 mm, 37 weeks 1 day. FL: 72 mm, 37 weeks 0 days. Composite EGA: 37 weeks 3 days. US EDC: 08/01/2018. EDC By Early OB US: 07/23/2018. LMP Percentile: 28%. Weight: 3124 g, plus or minus 456 g. Ovaries and Adnexae: Not visualized Readin. Single live fetus with vertex presentation. Amniotic fluid content appears slightly increased for this stage of . CODY is 11.0 cm. Placenta is anterior corpus and grade 3. 2. There is a hyperechoic "sheetlike" structure lying between the anterior placenta and the fetus on the right side of the uterus. This is quite extensive and does not appear to represent a classic amniotic band. 3. The composite EGA is 37 weeks 3 days with an ultrasound EDC of 08/01/2018. Based on the early OB ultrasound, the EDC would be 07/23/2018. LMP percentile is 28%. Estimated weight is 3124 g, plus or minus 456 g. Dictated By: 07/14/18 2957 AMANDA DAS MD. Signed By: 07/14/18 4698 AMANDA DAS MD. Patient Problems - Patient Problem List (1) Influenzal bronchitis Status: Acute Code(s): J11.1 - Influenza due to unidentified influenza virus with other respiratory manifestations Category: Medical (2) Blood transfusion reaction Status: Acute Code(s): T80.92XA - Unspecified transfusion reaction, initial encounter Qualifiers: Encounter type: initial encounter Qualified Code(s): T80.92XA - Unspecified transfusion reaction, initial encounter Category: Medical (3) Headache Status: Acute Code(s): R51 - Headache Qualifiers: Headache type: tension-type Headache chronicity pattern: acute headache Intractability: intractable Qualified Code(s): G44.201 - Tension-type headache, unspecified, intractable Category: Medical (4) Normal intrauterine in third trimester Status: Acute Code(s): Z34.93 - Encounter for supervision of normal , unspecified, third trimester Category: Medical (5) Anemia, iron deficiency Status: Acute Code(s): D50.9 - Iron deficiency anemia, unspecified Qualifiers: Iron deficiency anemia type: other iron deficiency Qualified Code(s): D50.8 - Other iron deficiency anemias Category: Medical
== END 2018-07-16 14:47 | disposition home or self-care (01) | DRG 195 ==
LOC: OBOP 21:43 → OBIP 21:43 → MED/SURG 07-15 00:25 → NUR 07-15 05:51 → OBIP 07-15 10:34
PROVIDERS: ADMIT Obstetrics & Gynecology; ATTEND Obstetrics & Gynecology

== ENCOUNTER 2018-07-17 00:27 | Inpatient (IN) ==
[2018-07-17] MEDS ORDERED: Lidocaine 1% 10 MG/ML - 20 ML VIAL SUBCUT PRN (01:19)
[2018-07-17] MEDS ORDERED: CefOXitin Inj 2 GM in Sodium Chloride 0.9% 100 ML IV PRN (01:19)
[2018-07-17] MEDS ORDERED: NALOXONE 0.4 MG/1 ML VIAL IVP PRN (01:19)
[2018-07-17] MEDS ORDERED: ONDANSETRON 4 MG/2 ML VIAL IVP PRN ×2 (01:19→18:42)
[2018-07-17] MEDS ORDERED: fentaNYL Inj 100 MCG/2 ML VIAL IV PRN (01:19)
[2018-07-17] MEDS ORDERED: OXYTOCIN 10 UNIT/1 ML IM PRN (01:19)
[2018-07-17] MEDS ORDERED: ePHEDrine Inj 50 MG/ML AMP IVP PRN (01:19)
[2018-07-17] MEDS ORDERED: diphenhydrAMINE 50 MG/1 ML VIAL IVP PRN ×2 (01:19→18:42)
[2018-07-17] MEDS ORDERED: MISOPROSTOL 200 MCG TABLET RECTAL PRN (01:19)
[2018-07-17] MEDS ORDERED: BUTORPHANOL TARTRATE 2 MG/1 ML VIAL IVP PRN (01:19)
[2018-07-17] MEDS ORDERED: CITRIC ACID/SODIUM CITRATE 30 ML CUP PO PRN (01:19)
[2018-07-17] MEDS ORDERED: METHYLERGONOVINE MALEATE 0.2 MG/1 ML VIAL IM PRN (01:19)
[2018-07-17] MEDS ORDERED: Phenylephrine Inj 50 MCG in Sodium Chloride 0.9% vial 0.5 ML IVP PRN (01:19)
[2018-07-17] MEDS ORDERED: Carboprost Inj 250 MCG/ML AMP IM PRN (01:19)
[2018-07-17] MEDS ORDERED: Nalbuphine Inj 20 MG/ML Ampule IVP PRN ×2 (01:19→18:42)
[2018-07-17] MEDS ORDERED: LIDOCAINE HCL 2 % 10 ML JELLY URO-JECT TOPICAL PRN ×2 (01:19→18:42)
[2018-07-17] MEDS ORDERED: TERBUTALINE SULFATE 1 MG/1 ML SDV SUBCUT PRN (01:19)
[2018-07-17] MEDS ORDERED: FAMOTIDINE 20 MG/2 ML VIAL IVP PRN ×2 (01:19)
[2018-07-17] MEDS ORDERED: LIDOCAINE W/ SODIUM BICARB 0.5 ML SYR SUBD PRN (01:19)
[2018-07-17] MEDS ORDERED: Naloxone Inj 0.01 MG in Sodium Chloride 0.9% vial 1 ML IVP PRN (01:19)
[2018-07-17] MEDS ORDERED: CALCIUM CARBONATE 500 MG (TUMS) CHEWABLE TABLET PO PRN ×2 (01:19→18:42)
[2018-07-17] MEDS ORDERED: Metoclopramide Inj 10 MG/2 ML VIAL IV PRN (01:19)
[2018-07-17] MEDS ORDERED: Oxytocin 20 Units + LR 20 UNIT/1,000 ML BAG IV SCH ×3 (01:30→18:42)
[2018-07-17 02:04] LABS: Hematocrit [HCT] 29.9 % (37.0-47.0); Hemoglobin [HGB] 9.4 g/dL (12.0-16.0); MEAN CORPUSCULAR HEMOGLOBIN 24.4 PG (27-31); MEAN CORPUSCULAR HGB CONC 31.4 g/dL (33-37); MEAN CORPUSCULAR VOLUME 77.5 FL (81-99); MEAN PLATELET VOLUME 11.2 FL (7.4-12.2); RED BLOOD COUNT 3.86 10^6/uL (4.20-5.40)
[2018-07-17] MEDS: Lactated Ringers-OB Dept 1,000 ML PRIMARY IV SCH ×2 (03:31→11:00)
[2018-07-17 04:19] LABS: AMPHETAMINE SCREEN NEGATIVE (NEG); CANNABINOID SCREEN,URINE POSITIVE (NEG); COCAINE SCREEN NEGATIVE (NEG); METHADONE URINE SCREEN NEGATIVE (NEG); METHAMPHETAMINES SCREEN,URINE NEGATIVE (NEG); OPIATE SCREEN,URINE NEGATIVE (NEG); URINE SAMPLE TYPE CLEAN CATCH URINE; URINE SPECIFIC GRAVITY - MAN 1.016
[2018-07-17] MEDS: ALBUTEROL SULFATE 2.5 MG/3 ML NEB PRN ×2 (07:03→10:55)
--- NOTE | 2018-07-17 12:38 | OB.PROGRES ---
Interval History: The patient is quite uncomfortable with her contractions, which are occurring q 2-4 min. Her cervix is only 2 cm dilated, despite the regular, painful contractions. EFM demonstrates category 1 tracing. IUPC was placed to better titrate pitocin drip which is currently at 10 mIU/min. Anticipate when patient gets into active labor. Objective - Labs CBC and BMP: 07/17/18 01:55 - Vital Signs Last Taken Vital Signs: Vital Signs - Last Taken Temperature 97.2 F 07/17/18 06:30 Pulse Rate 79 07/17/18 10:56 Respiratory Rate 16 07/17/18 10:56 Blood Pressure 106/67 07/17/18 09:00 Pulse Ox 70 07/17/18 11:00
[2018-07-17] MEDS ORDERED: Fent/Bupiv 2mcg/0.0625% Epid 250 ML ONE (13:14)
--- NOTE | 2018-07-17 13:29 | CRNA.PROCE ---
Central Neuraxis Block Placemt - - Safety Measures: Time Out Taken, Site Verified - - Type of Block: Epidural Reason for Block: Analgesia Moniters Used During Block: SPO2, NIBP Sedation Used - Enter Amount Used in Comment Field: Fentanyl (mcg): Yes (100 by OB RN see nursing note) Positioning: Sitting Skin Prep Used: Betadine Skin Infiltration - Enter Amount Used in Comment Field: 1% Xylocaine (mL): Yes (wheal) Spinal Needle Used: 18 Hustead 80 mm Local Anesthetic - Enter Amount Used in Comment Field: 5.0 % Xylocaine with Dextrose (ml): Yes (5ml test dose Neg) Number of Centimeters Catheter Threaded: 4 Bioclusive Dressing Applied: Yes - - Additional Details: Discussed epidural for AMY with risks/benefits, questions answered, wished to proceed. Sitting, landmarks id'd, betadine prep, drape, skin wheal at L4-5 #18 hustead passed and bone encountered, redirected, bone encountered. Repositioned patient and skin wheal at L5-S1, crisp RHINA to saline first pass, catheter easily threaded 4cm. 5ml test dose neg. PCEA started. Anesthesia Time - Other Weight: 76.204 kg Height: 5 ft 3 in Body Mass Index (BMI): 29.7
[2018-07-17] MEDS ORDERED: fentaNYL 2 MCG/BUPIVACAINE 0.0625%/NS 0.9% 250 ML BAG EPIDURAL SCH (13:30)
--- NOTE | 2018-07-17 13:30 | CRNA.PROGR ---
Anesthesia Time - Procedure/Recovery Time Start Date: 07/17/18 End Date: 07/17/18 Anesthesia : Time In: 12:50 Anesthesia : Time Out: 13:30 Anesthesia : Total Time: 40 - Total Anesthesia Time Total Anesthesia Time (minutes): 40 - Other Weight: 76.204 kg Height: 5 ft 3 in Body Mass Index (BMI): 29.7 Physical Status: P2 Obstetrics: Planned vaginal delivery w/ neuraxial labor anesthesia/analog
--- NOTE | 2018-07-17 17:51 | OB.DEL.SUM ---
Delivery Note Delivery Summary: After somewhat prolonged latent and active phases of labor for a P3 patient, she finally achieved complete dilation. She pushed for a short time to of a viable male infant from OA position, Apgars 8/10, over an intact perineum. Nuchal cord x1 was reduced on the perineum. Delayed cord clamping for 40 secon ds was allowed for before the cord was clamped and cut and the was placed on the maternal abdomen. The placenta delivered immediately, intact, with a 3 vessel cord. Mild atony was treated with bimanual massage and IM methergine. EBL 250 ml. There were no complications. Mother and baby tolerated delivery well.
[2018-07-17] MEDS ORDERED: Ertapenem Inj 1 GM in Sodium Chloride 0.9% 100 ML IV SCH (18:42)
[2018-07-17] MEDS ORDERED: Ondansetron ODT Tab 4 MG TAB PO PRN (18:42)
[2018-07-17] MEDS ORDERED: ACETAMINOPHEN 325 MG TABLET PO PRN (18:42)
[2018-07-17] MEDS ORDERED: LANOLIN HPA 40 GM TUBE TOPICAL PRN (18:42)
[2018-07-17] MEDS ORDERED: BENZOCAINE/MENTHOL SPRAY 56 GM BOTTLE TOPICAL PRN (18:42)
[2018-07-17] MEDS ORDERED: GLYCERIN/WITCH HAZEL 1 BOX TOPICAL PRN (18:42)
[2018-07-17] MEDS ORDERED: DIPH,PERTUSS,TET(ADACEL) VAC/PF 0.5 ML (Tdap) IM ONE (18:42)
[2018-07-17] MEDS ORDERED: diphenhydrAMINE 25 MG CAPSULE PO PRN (18:42)
[2018-07-17] MEDS ORDERED: Ertapenem Inj 1 GM in Sodium Chloride 0.9% 100 ML IV ONE (19:00)
[2018-07-17] MEDS: HYDROcodone-APAP 5 MG -325 MG TABLET PO PRN ×2 (19:04→22:45)
[2018-07-17] MEDS: IBUPROFEN 800 MG TABLET PO PRN (19:54)
[2018-07-17] MEDS: OSELTAMIVIR PHOSPHATE 75 MG CAPSULE PO SCH (21:06)
[2018-07-17] MEDS: DOCUSATE 100 MG CAPSULE PO SCH (21:06)
[2018-07-18 02:01] VITALS: O2SAT 97
[2018-07-18 05:21] LABS: Hematocrit [HCT] 31.8 % (37.0-47.0); MEAN CORPUSCULAR HEMOGLOBIN 24.4 PG (27-31); MEAN CORPUSCULAR HGB CONC 31.4 g/dL (33-37); MEAN CORPUSCULAR VOLUME 77.6 FL (81-99); MEAN PLATELET VOLUME 12.2 FL (7.4-12.2); RED BLOOD COUNT 4.1 10^6/uL (4.20-5.40)
[2018-07-18] MEDS: IBUPROFEN 800 MG TABLET PO PRN ×2 (05:43→13:41)
[2018-07-18] MEDS: HYDROcodone-APAP 5 MG -325 MG TABLET PO PRN ×2 (05:44→19:11)
[2018-07-18 08:24] VITALS: RESP 16
[2018-07-18] MEDS: DOCUSATE 100 MG CAPSULE PO SCH (08:57)
[2018-07-18] MEDS ORDERED: Prenatal Multivitamin Tab 1 TAB TAB PO SCH (09:00)
[2018-07-18] MEDS: OSELTAMIVIR PHOSPHATE 75 MG CAPSULE PO SCH (09:03)
--- NOTE | 2018-07-18 10:41 | DCSUMMARY ---
Hospitalization Summary Admit Date: 07/17/18 Discharge Date: 07/18/18 Primary Diagnosis:: Term , Delivered. Delivery Type: Vaginal Hospital Course: Normal, uncomplicated labor, delivery, course. Discharge to home on PPD 1 in good condition. F/u 6 weeks. / Postop Complications: None [place] Complications: None Exam - Vitals Vital Signs: Vital Signs Temperature 97.9 F Temperature Source Oral Pulse Rate [Pulse Oximeter] 70 Pulse Rate 72 Respiratory Rate 16 Blood Pressure [Right Arm] 102/58 Blood Pressure 112/65 Pulse Ox 97 Oxygen Delivery Method Room Air Height 5 ft 3 in Weight 168 lb
--- NOTE | 2018-07-18 10:42 | OB.PROGRES ---
Subjective Post Day: 1 Pain Management: PO Jara Catheter: No Flatus: Yes Lochia Color: Rubra/Red Small 10-25 ml Diet: Regular Feeding Method: Formula Feeding Ambulating: Yes Concerns / Additional Information: Doing well this AM. Voiding without difficulty. Normal lochia. Assesstment / Plan Assessment / Plan: PPD 1, doing well. Discharge to home.
[2018-07-18 13:12] VITALS: BP 106/68
[2018-07-18 19:31] VITALS: TEMP 96.9
== END 2018-07-18 19:40 | disposition home or self-care (01) | DRG 807 ==
LOC: OBOP 00:27 → OBIP 01:24
PROVIDERS: ADMIT Student in an Organized Health Care Education/Training Program; ATTEND Obstetrics & Gynecology